=== PATIENT | female | born 1960 | race Caucasian/White ===

== ENCOUNTER 2016-10-05 11:53 | Emergency (ER) | payer OTHER ==
[2016-10-05] MEDS ORDERED: SODIUM CHLORIDE 0.9% 1,000 ML IV STA (12:20)
--- NOTE | 2016-10-05 12:31 | ED ---
Dizziness HPI - General Chief Complaint: Dizziness Stated Complaint: DIZZINESS Time Seen by Provider: 10/05/16 12:15 Source: patient, RN notes reviewed Mode of arrival: wheelchair Limitations: no limitations - History of Present Illness Initial Comments: Patient is a 56-year-old female presents to the emergency room for evaluation of dizziness. Patient states she has been dizzy for the past 2 weeks. Patient states she originally thought it was due to sinus congestion. Patient states been using nasal saline with no relief of symptoms. Patient states yesterday she was feeling extremely dizzy with a headache. Patient denies chest pain or shortness of breath. Patient states she thought she should be evaluated today. Patient also states that she just began lisinopril about 2 weeks ago, around the time and the dizziness began. Patient states she discontinue taking the lisinopril yesterday to see if that would help her symptoms. Patient states she feels slightly better today. Patient states she is having a slight headache. Patient states she feels like the room spinning around her. Patient states the dizziness comes in waves. Patient states she's nauseous when she feels dizzy. Patient states both of her ears feel blocked. Patient denies throat pain. Patient denies cough. Patient denies abdominal pain. Patient denies numbness or tingling in fingers and toes. Patient denies weakness. Patient denies fevers or chills. - Related Data Home Medications Medication Instructions Recorded Confirmed Lisinopril [Zestril] 5 mg PO DAILY 10/05/16 10/05/16 Previous Rx's Medication Instructions Recorded Amoxicillin/Potassium Clav 1 each PO Q12HR #20 tab 10/05/16 [Augmentin 875-125 Tablet] Meclizine [Antivert] 12.5 mg PO Q6H PRN #12 tablet 10/05/16 Allergies Allergy/AdvReac Type Severity Reaction Status Date / Time Sulfa (Sulfonamide Allergy Swelling Verified 10/05/16 12:11 Antibiotics) Review of Systems ROS Statement: Those systems with pertinent positive or pertinent negative responses have been documented in the HPI. ROS Other: All systems not noted in ROS Statement are negative. Past Medical History Past Medical History: Hypertension History of Any Multi-Drug Resistant Organisms: None Reported Past Surgical History: Section, Hysterectomy Past Psychological History: Anxiety, Panic Disorder Smoking Status: Current every day smoker Past Alcohol Use History: None Reported Past Drug Use History: None Reported General Exam - General Exam Comments Initial Comments: Laying in exam room, no acute distress. Limitations: no limitations General appearance: alert, in no apparent distress Head exam: Present: atraumatic, normocephalic, normal inspection Eye exam: Present: normal appearance, PERRL, EOMI Pupils: Present: normal accommodation ENT exam: Present: normal exam, mucous membranes moist, TM's normal bilaterally , normal external ear exam, other (Tenderness on palpating over frontal sinus and bilateral maxillary sinuses) Neck exam: Present: normal inspection, full ROM. Absent: tenderness, lymphadenopathy Respiratory exam: Present: normal lung sounds bilaterally. Absent: respiratory distress Cardiovascular Exam: Present: regular rate, normal rhythm, normal heart sounds Extremities exam: Present: normal inspection Back exam: Present: normal inspection Neurological exam: Present: alert, oriented X3, CN II-XII intact, normal gait Psychiatric exam: Present: normal affect, normal mood Skin exam: Present: warm, dry, intact, normal color. Absent: rash Course Vital Signs 10/05/16 10/05/16 10/05/16 11:53 13:11 14:00 Temperature 97.6 F Pulse Rate 76 60 Pulse Rate [ 68 Right Sitting] Pulse Rate [ 74 Right Standing] Pulse Rate [ 61 Right Supine] Respiratory 18 16 18 Rate Blood Pressure 160/72 112/67 Blood Pressure 133/74 [Right Arm Sitting] Blood Pressure 122/66 [Right Arm Standing] Blood Pressure 140/74 [Right Arm Supine] O2 Sat by Pulse 99 100 100 Oximetry 10/05/16 14:34 Temperature 97.7 F Pulse Rate 65 Pulse Rate [ Right Sitting] Pulse Rate [ Right Standing] Pulse Rate [ Right Supine] Respiratory 18 Rate Blood Pressure 120/68 Blood Pressure [Right Arm Sitting] Blood Pressure [Right Arm Standing] Blood Pressure [Right Arm Supine] O2 Sat by Pulse 100 Oximetry EKG Findings - EKG Comments: EKG Findings:: Normal sinus rhythm, ventricular rate 66 bpm, MD interval 114 ms , QRS duration 80 ms, QT/QTC 398/417 ms Medical Decision Making - Medical Decision Making Patient is a 56 year old female presents emergency room for evaluation of dizziness. Patient states she is feeling slightly better after Antivert and Zofran given. But, within normal limits. Cardiac enzymes within normal limits. EKG shows no concerning findings. Chest x-ray shows no concerning findings. Patient was offered head CT. Patient refused CT and states she thinks it's her sinuses and would like to be discharged home. Patient states she's having sinus pressure and pain. Will place patient on antibiotics to cover for sinusitis. Will also send patient home with Antivert as needed. Advised patient to follow up with her primary care provider on Friday or to return for worsening symptoms. Patient states understands everything that was discussed with her. Return parameters discussed. Case discussed with Dr. Davison. - Lab Data Result diagrams: 10/05/16 12:31 10/05/16 12:31 Lab Results 10/05/16 10/05/16 10/05/16 Range/Units 12:31 12:31 12:31 WBC 4.7 (3.8-10.6) k/uL RBC 3.85 (3.80-5.40) m/uL Hgb 13.4 (11.4-16.0) gm/dL Hct 37.9 (34.0-46.0) % MCV 98.5 (80.0-100.0) fL MCH 34.7 (25.0-35.0) pg MCHC 35.2 (31.0-37.0) g/dL RDW 12.1 (11.5-15.5) % Plt Count 177 (150-450) k/uL Neutrophils % 68 % Lymphocytes % 22 % Monocytes % 4 % Eosinophils % 3 % Basophils % 0 % Neutrophils # 3.2 (1.3-7.7) k/uL Lymphocytes # 1.0 (1.0-4.8) k/uL Monocytes # 0.2 (0-1.0) k/uL Eosinophils # 0.2 (0-0.7) k/uL Basophils # 0.0 (0-0.2) k/uL PT 10.5 (9.0-12.0) sec INR 1.0 (<1.1) Sodium 144 (137-145) mmol/L Potassium 4.6 (3.5-5.1) mmol/L Chloride 109 H (98-107) mmol/L Carbon Dioxide 28 (22-30) mmol/L Anion Gap 7 mmol/L BUN 10 (7-17) mg/dL Creatinine 0.76 (0.52-1.04) mg/dL Est GFR (MDRD) Af Amer >60 (>60 ml/min/1.73 sqM) Est GFR (MDRD) Non-Af >60 (>60 ml/min/1.73 sqM) Glucose 94 (74-99) mg/dL Calcium 9.3 (8.4-10.2) mg/dL Total Bilirubin 0.5 (0.2-1.3) mg/dL AST 14 (14-36) U/L ALT 21 (9-52) U/L Alkaline Phosphatase 73 (38-126) U/L Troponin I (0.000-0.034) ng/mL Total Protein 7.1 (6.3-8.2) g/dL Albumin 4.2 (3.5-5.0) g/dL Urine Color Urine Appearance (Clear) Urine pH (5.0-8.0) Ur Specific [place] (1.001-1.035) Urine Protein (Negative) Urine Glucose (UA) (Negative) Urine Ketones (Negative) Urine Blood (Negative) Urine Nitrite (Negative) Urine Bilirubin (Negative) Urine Urobilinogen (<2.0) mg/dL Ur Leukocyte Esterase (Negative) Urine Opiates Screen (NotDetected) Ur Oxycodone Screen (NotDetected) Urine Methadone Screen (NotDetected) Ur Propoxyphene Screen (NotDetected) Ur Barbiturates Screen (NotDetected) U Tricyclic Antidepress (NotDetected) Ur Phencyclidine Scrn (NotDetected) Ur Amphetamines Screen (NotDetected) U Methamphetamines Scrn (NotDetected) U Benzodiazepines Scrn (NotDetected) Urine Cocaine Screen (NotDetected) U Marijuana (THC) Screen (NotDetected) 10/05/16 10/05/16 Range/Units 12:31 12:55 WBC (3.8-10.6) k/uL RBC (3.80-5.40) m/uL Hgb (11.4-16.0) gm/dL Hct (34.0-46.0) % MCV (80.0-100.0) fL MCH (25.0-35.0) pg MCHC (31.0-37.0) g/dL RDW (11.5-15.5) % Plt Count (150-450) k/uL Neutrophils % % Lymphocytes % % Monocytes % % Eosinophils % % Basophils % % Neutrophils # (1.3-7.7) k/uL Lymphocytes # (1.0-4.8) k/uL Monocytes # (0-1.0) k/uL Eosinophils # (0-0.7) k/uL Basophils # (0-0.2) k/uL PT (9.0-12.0) sec INR (<1.1) Sodium (137-145) mmol/L Potassium (3.5-5.1) mmol/L Chloride (98-107) mmol/L Carbon Dioxide (22-30) mmol/L Anion Gap mmol/L BUN (7-17) mg/dL Creatinine (0.52-1.04) mg/dL Est GFR (MDRD) Af Amer (>60 ml/min/1.73 sqM) Est GFR (MDRD) Non-Af (>60 ml/min/1.73 sqM) Glucose (74-99) mg/dL Calcium (8.4-10.2) mg/dL Total Bilirubin (0.2-1.3) mg/dL AST (14-36) U/L ALT (9-52) U/L Alkaline Phosphatase (38-126) U/L Troponin I <0.012 (0.000-0.034) ng/mL Total Protein (6.3-8.2) g/dL Albumin (3.5-5.0) g/dL Urine Color Colorless Urine Appearance Clear (Clear) Urine pH 7.0 (5.0-8.0) Ur Specific [place] 1.002 (1.001-1.035) Urine Protein Negative (Negative) Urine Glucose (UA) Negative (Negative) Urine Ketones Negative (Negative) Urine Blood Negative (Negative) Urine Nitrite Negative (Negative) Urine Bilirubin Negative (Negative) Urine Urobilinogen <2.0 (<2.0) mg/dL Ur Leukocyte Esterase Negative (Negative) Urine Opiates Screen Not Detected (NotDetected) Ur Oxycodone Screen Not Detected (NotDetected) Urine Methadone Screen Not Detected (NotDetected) Ur Propoxyphene Screen Not Detected (NotDetected) Ur Barbiturates Screen Not Detected (NotDetected) U Tricyclic Antidepress Not Detected (NotDetected) Ur Phencyclidine Scrn Not Detected (NotDetected) Ur Amphetamines Screen Not Detected (NotDetected) U Methamphetamines Scrn Not Detected (NotDetected) U Benzodiazepines Scrn Not Detected (NotDetected) Urine Cocaine Screen Not Detected (NotDetected) U Marijuana (THC) Screen Not Detected (NotDetected) - Radiology Data Radiology results: report reviewed, image reviewed Disposition Clinical Impression: Dizziness, Sinusitis Disposition: HOME SELF-CARE Condition: Good Instructions: Dizziness (ED) Additional Instructions: Take Antivert as needed for dizziness. Take antibiotics as directed. Please follow up with primary care provider in 1-2 days or reevaluation. If any new symptom arises or symptoms worsen, return to ER as soon as possible. Prescriptions: Amoxicillin/Potassium Clav [Augmentin 875-125 Tablet] 1 each PO Q12HR #20 tab Meclizine [Antivert] 12.5 mg PO Q6H PRN #12 tablet PRN Reason: Vertigo Referrals: Christopher Brown DO [Primary Care Provider] - 1-2 days Time of Disposition: 14:24
[2016-10-05] MEDS ORDERED: ONDANSETRON 4 MG/2 ML VIAL IVP STA (12:43)
[2016-10-05] MEDS ORDERED: MECLIZINE 12.5 MG TAB PO STA (12:43)
[2016-10-05 12:50] LABS: Basophils % (A) 0 %; CH 34.7; CHCM 35.4; Eosinophils # (A) 0.2 k/uL (0-0.7); Eosinophils % (A) 3 %; HCT 37.9 % (34.0-46.0); HDW 2.53; HGB 13.4 gm/dL (11.4-16.0); Luc # (Auto) 0.09; Luc % (Auto) 2; Lymphocytes % (A) 22 %; MCH 34.7 pg (25.0-35.0); MCHC 35.2 g/dL (31.0-37.0); MCV 98.5 fL (80.0-100.0); Monocytes # (A) 0.2 k/uL (0-1.0); Monocytes % (A) 4 %; Neutrophils # (A) 3.2 k/uL (1.3-7.7); Neutrophils % (A) 68 %; RBC 3.85 m/uL (3.80-5.40); RDW 12.1 % (11.5-15.5); WBC 4.7 k/uL (3.8-10.6); WBC (Perox) 4.75
[2016-10-05 13:00] LABS: Prothrombin Time 10.5 sec (9.0-12.0)
[2016-10-05 13:06] LABS: ALT 21 U/L (9-52); AST 14 U/L (14-36); Alkaline Phosphatase 73 U/L (38-126); Anion Gap 7 mmol/L; Blood Urea Nitrogen 10 mg/dL (7-17); Calcium 9.3 mg/dL (8.4-10.2); Carbon Dioxide 28 mmol/L (22-30); Chloride 109 mmol/L (98-107); Glucose 94 mg/dL (74-99); Non-African American GFR(MDRD) >60 (>60 ml/min/1.73 sqM); Potassium 4.6 mmol/L (3.5-5.1); Sodium 144 mmol/L (137-145); Total Bilirubin 0.5 mg/dL (0.2-1.3); Total Protein 7.1 g/dL (6.3-8.2)
--- NOTE | 2016-10-05 13:36 | XR ---
EXAMINATION TYPE: XR chest 2V DATE OF EXAM: 10/05/2016 1:27 PM COMPARISON: NONE HISTORY: Dizziness and weakness. TECHNIQUE: Frontal and lateral views of the chest are obtained. FINDINGS: There is chronic parenchymal change without suspicious focal air space opacity, pleural ef fusion, or pneumothorax seen. The cardiac silhouette size is within normal limits. The osseous str uctures are intact. IMPRESSION: No acute cardiopulmonary process.
[2016-10-05 13:38] LABS: Appearance,Urine Clear (Clear); Bilirubin,Urine Negative (Negative); Glucose,Urine (UA) Negative (Negative); Ketones,Urine Negative (Negative); Leukocyte Esterase,Urine Negative (Negative); Nitrite,Urine Negative (Negative); Protein,Urine Negative (Negative); Specific Gravity,Urine 1.002 (1.001-1.035); UA Billing (MACRO vs. MICRO) CHEM; Urobilinogen,Urine <2.0 mg/dL (<2.0)
[2016-10-05 14:05] VITALS: RESP 18
[2016-10-05 14:37] VITALS: BP 120/68; PULSE 65; TEMP 97.7
== END 2016-10-05 14:37 | disposition home or self-care (01) ==
LOC: EC 11:53
DX: J32.9 Chronic sinusitis, unspecified (principal); R11.0 Nausea; I10 Essential (primary) hypertension; F17.200 Nicotine dependence, unspecified, uncomplicated; Z79.899 Other long term (current) drug therapy; Z88.2 Allergy status to sulfonamides
CPT/HCPCS: 36415; 93005; 80053; 84484; 85025; 85610; 81003; 80306; 71020; 99284; 96374; 96361; J2405

== ENCOUNTER → 2017-08-26 | Outpatient (CLI) | payer OTHER ==
[2017-08-26 15:07] LABS: Blood Urea Nitrogen 13 mg/dL (7-17)
== END | disposition home or self-care (01) ==
LOC: LABWHC1 14:30
PROVIDERS: ATTEND Psychiatry & Neurology Neurology
DX: R42 Dizziness and giddiness (principal)
CPT/HCPCS: 36415; 82565; 84520

== ENCOUNTER 2017-10-09 09:05 | Day surgery (SDC) | payer OTHER ==
[2017-10-09 09:32] VITALS: RESP 18; TEMP 98.3
[2017-10-09] MEDS ORDERED: LACTATED RINGERS 1,000 ML IV ONE (09:32)
[2017-10-09] MEDS ORDERED: LIDOCAINE 1% 20 ML VIAL (10MG/ML) FOR IV START INTRADERMA ONE (09:32)
--- NOTE | 2017-10-09 10:45 | P.PCN ---
Date of Procedure: 10/09/17 Anesthesia: local Surgeon: Shukri De Leon Description of Procedure: Preoperative diagnosis: Multiple sclerosis Post operative diagnoses: Multiple sclerosis Anesthesia local infiltration with lidocaine 1% 2 mL. Condition: stable Complication: none. Description of the procedure procedure risk and benefits discussed with the patient and family, consent signed. Patient was taken to the procedure area placed in seated position. Local infiltration of the skin and subcutaneous tissue with lidocaine 1%. A 22-gauge Quincke-type needle advanced slowly at L4 - 5 interlaminar space.CSF was collected. Opening pressure was 30 cm. Closing pressure was 14 cm. A total of 12 ML of clear cerebrospinal fluid collected in 4 different tubes 2-2-1/2 mL in each, then the needle removed and a Band-Aid applied and patient tolerated the procedure well without any complications. He will follow up with her neurologist per his plan of care.
[2017-10-09] MEDS ORDERED: IV FLUID CONTINUATION 1,000 ML IV ONE (10:51)
[2017-10-09 11:21] VITALS: BP 114/75; PULSE 62
[2017-10-09 11:46] LABS: Glucose,CSF 55 mg/dL (40-70); Total Protein,CSF 57 mg/dL (12-60)
[2017-10-09 12:56] LABS: Appearance,CSF Clear; CSF Tube Number 4; CSF Tube Volume 4.2; Nucleated Cells, CSF 0 u/L (0-5); Red Blood Cell,CSF 0 u/L (0-10)
[2017-10-09 17:03] LABS: Protein, Total 7.3 g/dL (6.2-8.2)
[2017-10-10 12:12] LABS: Albumin 4.54 g/dL (3.80-4.90); Gamma Globulin 0.95 g/dL (0.70-1.50)
[2017-10-10 14:15] LABS: IgG - CSF 3.1 mg/dL (0.0 - 3.4); IgG/Albumin Index (CSF) 0.52 (0.00 - 0.77)
== END 2017-10-09 11:55 | disposition home or self-care (01) ==
LOC: ORPAIN 09:05
PROVIDERS: ATTEND Pain Medicine Pain Medicine
DX: G35 Multiple sclerosis (principal); R42 Dizziness and giddiness; Z88.5 Allergy status to narcotic agent; Z88.2 Allergy status to sulfonamides
CPT/HCPCS: 84157; 82945; 82040; 82042; 82784; 83916; 89050; 82438; 84165; 62270; J2001; 86618

== ENCOUNTER → 2017-12-11 | Outpatient (CLI) | payer OTHER ==
--- NOTE | 2017-12-23 10:08 | ENG ---
ELECTRONYSTAGMOGRAM REPORT VNG REPORT VNG FINDINGS: Saccades shows intact peak velocities, accuracies and latencies. Tracking is intact without break-ups. Optokinetic nystagmus shows no significant asymmetry. Positional testing in 6 different positions with eyes open and with eyes closed shows no significant nystagmus. [place]-Hallpike maneuvers are negative. Caloric testing shows a bilateral caloric weakness. Another test such as the head thrust test or if available active and passive rotation testing is required to confirm presence of bilateral vestibular dysfunction. IMPRESSION: Bilateral caloric weakness is recorded and so no determination for unilateral caloric weakness could be determined. As noted above another test such as head thrust test or if available active and passive rotation testing is required to confirm presence of bilateral vestibular dysfunction. Otherwise, this is an unremarkable study. MMODL / IJN: [id number] /
== END | disposition home or self-care (01) ==
LOC: NEUROMAIN 06:54
PROVIDERS: ATTEND Otolaryngology
DX: R42 Dizziness and giddiness (principal)
CPT/HCPCS: 92537; 92540

== ENCOUNTER 2018-05-25 17:33 | Emergency (ER) | payer OTHER ==
[2018-05-25] MEDS ORDERED: DIAZEPAM 5 MG/ML 2 ML INJ IVP STA ×2 (18:23→20:55)
[2018-05-25] MEDS ORDERED: MECLIZINE 12.5 MG TAB PO STA (18:23)
[2018-05-25] MEDS ORDERED: SODIUM CHLORIDE 0.9% 1,000 ML IV STA (18:23)
--- NOTE | 2018-05-25 18:50 | ED ---
Dizziness HPI - General Chief Complaint: Dizziness Stated Complaint: DIZZY NAUSEA Time Seen by Provider: 05/25/18 18:09 Source: patient Mode of arrival: wheelchair Limitations: no limitations - History of Present Illness Initial Comments: 58-year-old male patient presented to the emergency department today for evaluation of dizziness. Patient states that she does have a history of vertigo. States that she's been feeling lightheaded for the last 5-6 days. Patient states that today the dizziness worsen significantly. Patient states that at rest or with movement the room is spinning. Patient states in the episodes, and she does feel like she has blurred vision. She did have some numbness and tingling to the left arm earlier today. Patient states the dizziness is the worst she has ever had. She denies any head injury. States she is having a mild right frontal headache. She has been nauseated and has been vomiting. She denies any weakness to extremities. States that she is having some pain to the right ear. States that she does have Valium at home but she hasn't taken for the last 4-5 days. She denies taking any meclizine. States she does follow with Dr. Lo outpatient for her vertigo. Patient denies any recent rash, fever, chills, shortness breath, chest pain, abdominal pain, diarrhea, constipation, back pain, hematuria, dysuria, urinary urgency, urinary frequency, or any other complaints. - Related Data Home Medications Medication Instructions Recorded Confirmed Acetaminophen [Tylenol] 500 mg PO Q8HR 05/25/18 05/25/18 Artificial Tears-Hypromellose 1 drop BOTH EYES DAILY 05/25/18 05/25/18 [Artificial Tear Drops] Diazepam [Valium] 2 mg PO DAILY 05/25/18 05/25/18 Previous Rx's Medication Instructions Recorded Amoxic-Pot Clav 875-125Mg 1 tab PO Q12HR #20 tablet 05/25/18 [Augmentin 875-125] Guaifenesin/Dextromethorphan 1 each PO BID #10 tab.er.12h 05/25/18 [Mucinex Dm ER 1,200-60 mg Tab] Ondansetron [Zofran ODT] 4 mg PO Q8HR PRN #10 tab 05/25/18 Allergies Allergy/AdvReac Type Severity Reaction Status Date / Time Sulfa (Sulfonamide Allergy Swelling Verified 05/25/18 19:05 Antibiotics) onion AdvReac Nausea & Verified 05/25/18 19:07 Vomiting & Diarrhea Review of Systems ROS Statement: Those systems with pertinent positive or pertinent negative responses have been documented in the HPI. ROS Other: All systems not noted in ROS Statement are negative. Past Medical History Past Medical History: Hypertension Additional Past Medical History / Comment(s): c/o dizziness, headaches," pressure in head" History of Any Multi-Drug Resistant Organisms: None Reported Past Surgical History: Section, Hysterectomy Past Anesthesia/Blood Transfusion Reactions: Motion Sickness, Postoperative Nausea & Vomiting (PONV) Past Psychological History: Anxiety, Panic Disorder Smoking Status: Current every day smoker - Past Family History Mother Family Medical History: No Reported History General Exam Limitations: no limitations General appearance: alert, in no apparent distress, other (This is a well- developed, well-nourished adult female patient in no acute distress. Vital signs upon presentation are temperature 98.4F, pulse 79, respirations 16, blood pressure 119/78, pulse ox 98% on room air.) Eye exam: Present: normal appearance, PERRL, EOMI. Absent: scleral icterus, conjunctival injection, nystagmus, periorbital swelling ENT exam: Present: normal exam, normal oropharynx, mucous membranes moist, TM's normal bilaterally Neck exam: Present: normal inspection. Absent: tenderness, meningismus, lymphadenopathy Respiratory exam: Present: normal lung sounds bilaterally. Absent: respiratory distress, wheezes, rales, rhonchi, stridor Cardiovascular Exam: Present: regular rate, normal rhythm, normal heart sounds. Absent: systolic murmur, diastolic murmur, rubs, gallop, clicks GI/Abdominal exam: Present: soft, normal bowel sounds. Absent: distended, tenderness, guarding, rebound, rigid Neurological exam: Present: alert, oriented X3, CN II-XII intact, other ( Strength in all 4 extremities is 5/5.) Psychiatric exam: Present: normal affect, normal mood Skin exam: Present: warm, dry, intact, normal color. Absent: rash Course Vital Signs 05/25/18 05/25/18 05/25/18 17:49 19:17 20:18 Temperature 98.4 F 98.1 F Pulse Rate 79 70 68 Respiratory 16 18 17 Rate Blood Pressure 119/78 131/80 147/75 O2 Sat by Pulse 98 95 100 Oximetry 05/25/18 21:22 Temperature Pulse Rate 66 Respiratory 18 Rate Blood Pressure 132/76 O2 Sat by Pulse 97 Oximetry EKG Findings - EKG Comments: EKG Findings:: EKG obtained at 1901 shows normal sinus rhythm with a ventricular rate of 69, FL interval 116, QRS duration 78, QT 390, QTC 417. No evidence of ST elevation or depression. Medical Decision Making - Medical Decision Making 58-year-old female patient presents to the emergency department today with chief complaint of dizziness. Patient does have past history significant for vertigo. Patient is reporting right ear pain and fullness. Labs reviewed and are unremarkable. EKG is normal sinus rhythm. CT of the brain was performed and did reveal evidence of left maxillary sinusitis. Patient is reporting nasal congestion and drainage. We will treat with Augmentin and Mucinex for this. She'll be given prescription for Zofran as well. She does have medication at home for dizziness. She is instructed to follow-up with ENT and her primary care physician for recheck as soon as possible. Return parameters discussed in detail. She verbalizes understanding and agrees with this plan. - Lab Data Result diagrams: 05/25/18 18:40 05/25/18 18:40 Lab Results 05/25/18 05/25/18 05/25/18 Range/Units 18:40 18:40 18:40 WBC 5.0 (3.8-10.6) k/uL RBC 4.14 (3.80-5.40) m/uL Hgb 13.7 (11.4-16.0) gm/dL Hct 40.3 (34.0-46.0) % MCV 97.5 (80.0-100.0) fL MCH 33.1 (25.0-35.0) pg MCHC 34.0 (31.0-37.0) g/dL RDW 11.9 (11.5-15.5) % Plt Count 211 (150-450) k/uL Neutrophils % 65 % Lymphocytes % 24 % Monocytes % 5 % Eosinophils % 5 % Basophils % 1 % Neutrophils # 3.2 (1.3-7.7) k/uL Lymphocytes # 1.2 (1.0-4.8) k/uL Monocytes # 0.3 (0-1.0) k/uL Eosinophils # 0.2 (0-0.7) k/uL Basophils # 0.0 (0-0.2) k/uL PT 9.8 (9.0-12.0) sec INR 0.9 (<1.2) APTT 24.1 (22.0-30.0) sec Sodium (137-145) mmol/L Potassium (3.5-5.1) mmol/L Chloride (98-107) mmol/L Carbon Dioxide (22-30) mmol/L Anion Gap mmol/L BUN (7-17) mg/dL Creatinine (0.52-1.04) mg/dL Est GFR (CKD-EPI)AfAm (>60 ml/min/1.73 sqM) Est GFR (CKD-EPI)NonAf (>60 ml/min/1.73 sqM) Glucose (74-99) mg/dL Calcium (8.4-10.2) mg/dL Total Bilirubin (0.2-1.3) mg/dL AST (14-36) U/L ALT (9-52) U/L Alkaline Phosphatase (38-126) U/L Troponin I <0.012 (0.000-0.034) ng/mL Total Protein (6.3-8.2) g/dL Albumin (3.5-5.0) g/dL Urine Color Urine Appearance (Clear) Urine pH (5.0-8.0) Ur Specific [place] (1.001-1.035) Urine Protein (Negative) Urine Glucose (UA) (Negative) Urine Ketones (Negative) Urine Blood (Negative) Urine Nitrite (Negative) Urine Bilirubin (Negative) Urine Urobilinogen (<2.0) mg/dL Ur Leukocyte Esterase (Negative) Urine RBC (0-5) /hpf Urine WBC (0-5) /hpf Ur Squamous Epith Cells (0-4) /hpf Urine Mucus (None) /hpf 05/25/18 05/25/18 Range/Units 18:40 20:09 WBC (3.8-10.6) k/uL RBC (3.80-5.40) m/uL Hgb (11.4-16.0) gm/dL Hct (34.0-46.0) % MCV (80.0-100.0) fL MCH (25.0-35.0) pg MCHC (31.0-37.0) g/dL RDW (11.5-15.5) % Plt Count (150-450) k/uL Neutrophils % % Lymphocytes % % Monocytes % % Eosinophils % % Basophils % % Neutrophils # (1.3-7.7) k/uL Lymphocytes # (1.0-4.8) k/uL Monocytes # (0-1.0) k/uL Eosinophils # (0-0.7) k/uL Basophils # (0-0.2) k/uL PT (9.0-12.0) sec INR (<1.2) APTT (22.0-30.0) sec Sodium 141 (137-145) mmol/L Potassium 4.3 (3.5-5.1) mmol/L Chloride 108 H (98-107) mmol/L Carbon Dioxide 27 (22-30) mmol/L Anion Gap 6 mmol/L BUN 15 (7-17) mg/dL Creatinine 0.83 (0.52-1.04) mg/dL Est GFR (CKD-EPI)AfAm >90 (>60 ml/min/1.73 sqM) Est GFR (CKD-EPI)NonAf 78 (>60 ml/min/1.73 sqM) Glucose 102 H (74-99) mg/dL Calcium 9.3 (8.4-10.2) mg/dL Total Bilirubin 0.2 (0.2-1.3) mg/dL AST 17 (14-36) U/L ALT 20 (9-52) U/L Alkaline Phosphatase 74 (38-126) U/L Troponin I (0.000-0.034) ng/mL Total Protein 7.5 (6.3-8.2) g/dL Albumin 4.4 (3.5-5.0) g/dL Urine Color Colorless Urine Appearance Clear (Clear) Urine pH 6.5 (5.0-8.0) Ur Specific [place] 1.003 (1.001-1.035) Urine Protein Negative (Negative) Urine Glucose (UA) Negative (Negative) Urine Ketones Negative (Negative) Urine Blood Negative (Negative) Urine Nitrite Negative (Negative) Urine Bilirubin Negative (Negative) Urine Urobilinogen <2.0 (<2.0) mg/dL Ur Leukocyte Esterase Moderate H (Negative) Urine RBC 1 (0-5) /hpf Urine WBC 21 H (0-5) /hpf Ur Squamous Epith Cells <1 (0-4) /hpf Urine Mucus Rare H (None) /hpf - Radiology Data Radiology results: report reviewed, image reviewed CT brain without contrast was obtained. Report was reviewed in its entirety. Impression by Dr. Wiley shows negative computed tomography scan of the brain. Minimal left maxillary sinusitis. Disposition Clinical Impression: Vertigo, Sinusitis Disposition: HOME SELF-CARE Condition: Good Instructions: Sinusitis (ED), Vertigo (ED) Additional Instructions: Take medications as directed. Follow-up through primary care physician and possibly your ears, nose, throat specialist for recheck as soon as possible. Return immediately for any new, worsening, or concerning symptoms. Prescriptions: Amoxic-Pot Clav 875-125Mg [Augmentin 875-125] 1 tab PO Q12HR #20 tablet Guaifenesin/Dextromethorphan [Mucinex Dm ER 1,200-60 mg Tab] 1 each PO BID #10 tab.er.12h Ondansetron [Zofran ODT] 4 mg PO Q8HR PRN #10 tab PRN Reason: Nausea Is patient prescribed a controlled substance at d/c from ED?: No Referrals: Christopher Brown DO [Primary Care Provider] - 1-2 days Time of Disposition: 20:57
[2018-05-25 19:00] LABS: Basophils % (A) 1 %; Eosinophils # (A) 0.2 k/uL (0-0.7); Eosinophils % (A) 5 %; HCT 40.3 % (34.0-46.0); HGB 13.7 gm/dL (11.4-16.0); Lymphocytes # (A) 1.2 k/uL (1.0-4.8); Lymphocytes % (A) 24 %; MCH 33.1 pg (25.0-35.0); MCV 97.5 fL (80.0-100.0); Mean Platelet Volume 6.8; Monocytes # (A) 0.3 k/uL (0-1.0); Monocytes % (A) 5 %; Neutrophils # (A) 3.2 k/uL (1.3-7.7); Neutrophils % (A) 65 %; Platelet Count 211 k/uL (150-450); RBC 4.14 m/uL (3.80-5.40); RDW 11.9 % (11.5-15.5)
[2018-05-25 19:08] LABS: ALT 20 U/L (9-52); AST 17 U/L (14-36); Albumin 4.4 g/dL (3.5-5.0); Alkaline Phosphatase 74 U/L (38-126); Anion Gap 6 mmol/L; Blood Urea Nitrogen 15 mg/dL (7-17); Calcium 9.3 mg/dL (8.4-10.2); Carbon Dioxide 27 mmol/L (22-30); Chloride 108 mmol/L (98-107); Glucose 102 mg/dL (74-99); INR 0.9 (<1.2); Partial Thromboplastin Time 24.1 sec (22.0-30.0); Potassium 4.3 mmol/L (3.5-5.1); Prothrombin Time 9.8 sec (9.0-12.0); Sodium 141 mmol/L (137-145); Total Bilirubin 0.2 mg/dL (0.2-1.3); Total Protein 7.5 g/dL (6.3-8.2)
[2018-05-25 19:18] VITALS: TEMP 98.1
--- NOTE | 2018-05-25 20:22 | CT ---
EXAMINATION TYPE: CT brain wo con DATE OF EXAM: 05/25/2018 COMPARISON: None HISTORY: Dizziness. CT DLP: 1154.4 mGycm Automated exposure control for dose reduction was used. FINDINGS: There is some mucosal thickening left maxillary sinus. Ventricles of normal size. There is no mass ef fect nor midline shift. There is no sign of intracranial hemorrhage. The calvarium is intact. There i s no evidence of cerebral edema. There is 2 mm left thalamic calcification. IMPRESSION: NEGATIVE CT SCAN OF THE BRAIN. MINIMAL LEFT MAXILLARY SINUSITIS.
[2018-05-25] MEDS ORDERED: AMOXIC-POT CLAV 875MG STARTER 2 EACH TABLET PO STA (20:55)
[2018-05-25] MEDS ORDERED: ONDANSETRON 4 MG/2 ML VIAL IVP STA (20:55)
[2018-05-25] MEDS ORDERED: guaiFENesin-DM 600/30MG 1 EACH TAB.ER.12H PO STA (20:58)
[2018-05-25 20:59] LABS: Appearance,Urine Clear (Clear); Bilirubin,Urine Negative (Negative); Blood,Urine Negative (Negative); Color,Urine Colorless; Glucose,Urine (UA) Negative (Negative); Ketones,Urine Negative (Negative); Leukocyte Esterase,Urine Moderate (Negative); Mucus,Urine Rare /hpf; Nitrite,Urine Negative (Negative); PH, Urine 6.5 (5.0-8.0); Protein,Urine Negative (Negative); RBC,Urine 1 /hpf (0-5); Specific Gravity,Urine 1.003 (1.001-1.035); Squamous Epithelial Cell,Urine <1 /hpf (0-4); Urobilinogen,Urine <2.0 mg/dL (<2.0); WBC,Urine 21 /hpf (0-5)
[2018-05-25 21:23] VITALS: BP 132/76; PULSE 66; RESP 18
== END 2018-05-25 21:28 | disposition home or self-care (01) ==
LOC: EC 17:33
DX: J32.0 Chronic maxillary sinusitis (principal); R42 Dizziness and giddiness; F41.0 Panic disorder [episodic paroxysmal anxiety]; F17.200 Nicotine dependence, unspecified, uncomplicated; Z79.899 Other long term (current) drug therapy; Z88.2 Allergy status to sulfonamides; Z91.018 Allergy to other foods
CPT/HCPCS: 36415; 93005; 80053; 84484; 85025; 85610; 85730; 81001; 70450; 99284; 96374; 96375; 96376; 96361 ×2; J3360; J2405

== ENCOUNTER → 2018-10-02 | Outpatient (CLI) | payer OTHER ==
[2018-10-02 10:59] LABS: Basophils % (A) 0 %; Eosinophils # (A) 0.2 k/uL (0-0.7); Eosinophils % (A) 4 %; HCT 38.8 % (34.0-46.0); HGB 13.1 gm/dL (11.4-16.0); Lymphocytes % (A) 18 %; MCH 33.9 pg (25.0-35.0); MCHC 33.7 g/dL (31.0-37.0); MCV 100.5 fL (80.0-100.0); Mean Platelet Volume 7.4; Monocytes # (A) 0.3 k/uL (0-1.0); Monocytes % (A) 5 %; Neutrophils % (A) 71 %; Platelet Count 189 k/uL (150-450); RBC 3.86 m/uL (3.80-5.40); RDW 12.3 % (11.5-15.5); WBC 5.6 k/uL (3.8-10.6)
[2018-10-02 17:49] LABS: Vitamin D 25 Hydroxy 17.9 ng/mL (30.0-100.0)
[2018-10-02 17:53] LABS: Cholesterol 267 mg/dL (0-200); Glucose 134 mg/dL (70-110); Potassium 4.4 mmol/L (3.5-5.5); Sodium 141 mmol/L (135-145); Uric Acid 4.1 mg/dL (2.9-7.7)
== END | disposition home or self-care (01) ==
LOC: LABWHC1 10:22
PROVIDERS: ATTEND Otolaryngology
DX: H90.3 Sensorineural hearing loss, bilateral (principal); H81.03 Meniere's disease, bilateral
CPT/HCPCS: 36415; 80061; 82306; 82565; 82607; 82947; 83721; 84132; 84207; 84295; 84520; 84550; 85025

== ENCOUNTER → 2019-04-14 | Outpatient (CLI) | payer OTHER ==
--- NOTE | 2019-04-14 15:35 | US ---
EXAMINATION TYPE: US pelvis complete transvag DATE OF EXAM: 04/14/2019 COMPARISON: NONE CLINICAL HISTORY: R10.02 pelvic pain. Hx UTI. Generalized pelvic pain x 1 month. Getter better per patient. Hx of hysterectomy, patient doesn't remember if she still has ovaries or not. TECHNIQUE: Transvaginal (TV) and Transabdominal (TA) . Transabdominal sonographic images of the pel vis were acquired. Transvaginal sonographic images were medically necessary to better assess the fol lowing anatomy: Ovaries Date of LMP: Hysterectomy EXAM MEASUREMENTS: Right Ovary: 1.6 x 1.0 x 1.0 cm 1. Uterus: Surgically absent 2. Endometrium: Surgically absent 3. Right Ovary: Possible right ovary visualized, appearing wnl 4. Left Ovary: Obscured by overlying bowel gas 5. Bilateral Adnexa: wnl 6. Posterior cul-de-sac: No free fluid IMPRESSION: Surgical absence of the uterus and obscuration of the left ovary. Possible atrophic right ovary measuring 1.6 cm however this is difficult to visualize due to adjacent bowel.
== END | disposition home or self-care (01) ==
LOC: RADUSWWP 14:47
PROVIDERS: ATTEND Obstetrics & Gynecology
DX: R10.2 Pelvic and perineal pain (principal); Z90.710 Acquired absence of both cervix and uterus
CPT/HCPCS: 76830; 76856

== ENCOUNTER → 2019-05-14 | Outpatient (CLI) | payer OTHER ==
--- NOTE | 2019-05-17 11:17 | MM ---
Reason for exam: screening (asymptomatic). Last mammogram was performed 5 years ago. History: Patient is postmenopausal. Family history of breast cancer in paternal aunt at age 40. Took estrogen for 3 years beginning at age 29. Took progesterone for 3 years beginning at age 29. Physical Findings: A clinical breast exam by your physician is recommended on an annual basis and results should be correlated with mammographic findings. MG Screening Mammo w CAD Bilateral CC and MLO view(s) were taken. XCCL view(s) were taken of the left breast. Prior study comparison: May 27, 2014, bilateral MG diagnostic mammo w CAD [facility]. The breast tissue is heterogeneously dense. This may lower the sensitivity of mammography. There is no discrete abnormality. No significant changes when compared with prior studies. ASSESSMENT: Negative, BI-RAD 1 RECOMMENDATION: Routine screening mammogram of both breasts in 1 year.
== END ==
LOC: RADMAMWWP 10:44
PROVIDERS: ATTEND Obstetrics & Gynecology
DX: Z12.31 Encounter for screening mammogram for malignant neoplasm of breast (principal)
CPT/HCPCS: 77067

== ENCOUNTER → 2020-08-01 | Outpatient (CLI) | payer OTHER ==
--- NOTE | 2020-08-02 10:34 | MM ---
Reason for exam: screening (asymptomatic). Last mammogram was performed 1 year and 3 months ago. History: Patient is postmenopausal. Family history of breast cancer in paternal aunt at age 40. Took hormonal contraceptives for 1 year 6 months. Took estrogen for 3 years beginning at age 29. Took progesterone for 3 years beginning at age 29. Physical Findings: A clinical breast exam by your physician is recommended on an annual basis and results should be correlated with mammographic findings. MG Screening Mammo w CAD Bilateral CC and MLO view(s) were taken. Prior study comparison: May 14, 2019, bilateral MG screening mammo w CAD. May 27, 2014, bilateral MG diagnostic mammo w CAD [facility]. The breast tissue is heterogeneously dense. This may lower the sensitivity of mammography. Finding: There is a 10 mm equal density (isodense) mass in the upper outer quadrant of the left breast. ASSESSMENT: Incomplete: need additional imaging evaluation, BI-RAD 0 RECOMMENDATION: Special view mammogram of the left breast. If lesion persists on supplemental views, image directed ultrasound is recommended. [facility] will attempt to contact patient to return for supplemental views and ultrasound if indicated.
== END | disposition home or self-care (01) ==
LOC: RADMAMWWP 07:37
PROVIDERS: ATTEND Obstetrics & Gynecology
DX: Z12.31 Encounter for screening mammogram for malignant neoplasm of breast (principal); Z80.3 Family history of malignant neoplasm of breast
CPT/HCPCS: 77067

== ENCOUNTER → 2020-08-03 | Outpatient (CLI) | payer OTHER ==
--- NOTE | 2020-08-03 10:52 | MM ---
Reason for exam: additional evaluation requested from abnormal screening. Last mammogram was performed less than 1 month ago. History: Patient is postmenopausal. Family history of breast cancer in paternal aunt at age 40. Took hormonal contraceptives for 1 year 6 months. Took estrogen for 3 years beginning at age 29. Took progesterone for 3 years beginning at age 29. Physical Findings: Nurse Summary: 1cm nodule in the left breast at 12 o'clock (nurse db). MG Work Up Mamm w CAD LT Spot compression CC, spot compression MLO, and ML view(s) were taken of the left breast. Prior study comparison: August 01, 2020, bilateral MG screening mammo w CAD. May 14, 2019, bilateral MG screening mammo w CAD. There is no discrete abnormality including area of concern. These results were verbally communicated with the patient and result sheet given to the patient on 08/03/20. ASSESSMENT: Incomplete: need additional imaging evaluation, BI-RAD 0 RECOMMENDATION: Ultrasound of the left breast.
--- NOTE | 2020-08-03 10:54 | USB ---
Reason for exam: additional evaluation requested from abnormal screening. History: Patient is postmenopausal. Family history of breast cancer in paternal aunt at age 40. Took hormonal contraceptives for 1 year 6 months. Took estrogen for 3 years beginning at age 29. Took progesterone for 3 years beginning at age 29. US Breast Workup Limited LT Left limited breast ultrasound including focal area of concern, retroareolar and axilla demonstrates no cystic or solid lesion seen. These results were verbally communicated with the patient and result sheet given to the patient on 08/03/20. ASSESSMENT: Negative, BI-RAD 1 RECOMMENDATION: Return to routine screening mammogram schedule for both breasts. Manage patient on a clinical basis.
== END | disposition home or self-care (01) ==
LOC: RADMAMWWP 08:48
PROVIDERS: ATTEND Obstetrics & Gynecology
DX: R92.8 Other abnormal and inconclusive findings on diagnostic imaging of breast (principal)
CPT/HCPCS: 77065

== ENCOUNTER → 2022-07-09 | Outpatient (CLI) | payer BC ==
--- NOTE | 2022-07-09 15:36 | US ---
EXAMINATION TYPE: US carotid duplex BILAT DATE OF EXAM: 07/09/2022 COMPARISON: NONE CLINICAL HISTORY: Z86.73 personal hx TIA. Hx TIA x 4 per patient. Current smoker, hypertension, hyper lipidemia. TECHNIQUE: Carotid duplex ultrasound examination. Indirect Doppler criteria was utilized. FINDINGS: EXAM MEASUREMENTS: RIGHT: Peak Systolic Velocity (PSV) cm/sec ----- Right CCA: 75.2 ----- Right ICA: 99.9 ----- Right ECA: 83.4 ICA/CCA ratio: 1.3 RIGHT: End Diastole cm/sec ----- Right CCA: 23.6 ----- Right ICA: 35.7 ----- Right ECA: 11.0 LEFT: Peak Systolic Velocity (PSV) cm/sec ----- Left CCA: 143 ----- Left ICA: 104 ----- Left ECA: 118 ICA/CCA ratio: 0.73 LEFT: End Diastole cm/sec ----- Left CCA: 35.3 ----- Left ICA: 35.4 ----- Left ECA: 11.8 VERTEBRALS (direction of flow): Right Vertebral: Antegrade Left Vertebral: Antegrade Rhythm: Normal ACCOUNTING SYSTEMS MANAGER NOTES: Plaque seen within bilateral CCA and bilateral bulbs. Greater amount of plaque see n within the left CCA. Elevated velocity within left distal CCA. IMPRESSION: Less than 50% stenosis of the bilateral carotid bifurcations. Criteria for Assigning % of Stenosis / Diameter reduction (Estimation based on the indirect measurements of the internal carotid artery velocities (ICA PSV). 1. Normal (no stenosis)=ICA PSV < 125 cm/s: ratio < 2.0: ICA EDV<40 cm/s. 2. Less than 50% stenosis=ICA PSV < 125 cm/s: ratio < 2.0: ICA EDV<40 cm/s. 3. 50 to 69% stenosis=ICA PSV of 125 to 230 cm/s: ration 2.0 ? 4.0: ICA EDV 40-100 cm/s. 4. Greater than 70% stenosis to near occlusion= ICA PSV > 230 cm/s: ratio > 4.0: ICA EDV > 100 cm/s. 5. Near occlusion= ICA PSV velocities may be low or undetectable: variable ratio and ICA EDV. 6. Total occlusion=unable to detect flow.
== END | disposition home or self-care (01) ==
LOC: RADUSWWP 14:16
PROVIDERS: ATTEND Family Medicine
DX: I65.23 Occlusion and stenosis of bilateral carotid arteries (principal); I10 Essential (primary) hypertension; F17.200 Nicotine dependence, unspecified, uncomplicated; E78.5 Hyperlipidemia, unspecified; Z86.73 Personal history of transient ischemic attack (TIA), and cerebral infarction without residual deficits
CPT/HCPCS: 93880

== ENCOUNTER 2022-12-01 10:09 | Emergency (ER) | payer BC ==
[2022-12-01] MEDS ORDERED: CYCLOBENZAPRINE 5 MG TAB PO STA ×2 (11:10→12:04)
--- NOTE | 2022-12-01 11:15 | ED ---
Back Pain HPI - General Chief Complaint: Back Pain/Injury Stated Complaint: Back injury Time Seen by Provider: 12/01/22 10:40 Source: patient, RN notes reviewed Mode of arrival: ambulatory Limitations: no limitations - History of Present Illness Initial Comments: Patient is a 62 year old female presenting to the ER with a chief complaint of back pain. Patient states she was bent over lift something yesterday and when standing up felt a spasm pain in her mid back. Patient reports pain since and has taken a Motrin with slight relief but states it made her stomach upset. Patient states she has been using ice packs and a heating pad. She has also tried icy hot. Patient states she had a similar incident about 2 weeks ago which was improving when this occurred. Denies saddle paresthesias, or radiating. Denies any bladder or bowel incontinence. Denies any fevers chills or night sweats. Patient does report increase in urinary frequency recently but denies dysuria. Patient is very hesitant on taking pain medication due to the side effects. No other complaints at this time. - Related Data Home Medications Medication Instructions Recorded Confirmed Acetaminophen [Tylenol] 500 mg PO Q8HR 05/25/18 05/25/18 Artificial Tears-Hypromellose 1 drop BOTH EYES DAILY 05/25/18 05/25/18 [Artificial Tear Drops] diazePAM [Valium] 2 mg PO DAILY 05/25/18 05/25/18 Previous Rx's Medication Instructions Recorded Amoxic-Pot Clav 875-125Mg 1 tab PO Q12HR #20 tablet 05/25/18 [Augmentin 875-125] Guaifenesin/Dextromethorphan 1 each PO BID #10 tab.er.12h 05/25/18 [Mucinex Dm ER 1,200-60 mg Tab] Ondansetron [Zofran ODT] 4 mg PO Q8HR PRN #10 tab 05/25/18 Cyclobenzaprine [Flexeril] 5 mg PO TID PRN #15 tablet 12/01/22 Allergies Allergy/AdvReac Type Severity Reaction Status Date / Time Sulfa (Sulfonamide Allergy Swelling Verified 08/03/20 09:33 Antibiotics) onion AdvReac Nausea & Verified 12/01/22 10:28 Vomiting & Diarrhea Review of Systems ROS Statement: Those systems with pertinent positive or pertinent negative responses have been documented in the HPI. ROS Other: All systems not noted in ROS Statement are negative. Past Medical History Past Medical History: Hypertension Additional Past Medical History / Comment(s): c/o dizziness, headaches," pressure in head" History of Any Multi-Drug Resistant Organisms: None Reported Past Surgical History: Section, Hysterectomy Past Anesthesia/Blood Transfusion Reactions: Motion Sickness, Postoperative Nausea & Vomiting (PONV) Past Psychological History: Anxiety, Panic Disorder Smoking Status: Current every day smoker Past Alcohol Use History: None Reported Past Drug Use History: None Reported - Past Family History Mother Family Medical History: No Reported History General Exam Limitations: no limitations General appearance: alert, in no apparent distress Eye exam: Present: normal appearance, PERRL, EOMI. Absent: scleral icterus, conjunctival injection, periorbital swelling ENT exam: Present: normal exam, mucous membranes moist Neck exam: Present: normal inspection, full ROM. Absent: tenderness, meningismus, lymphadenopathy Respiratory exam: Present: normal lung sounds bilaterally. Absent: respiratory distress, wheezes, rales, rhonchi, stridor Cardiovascular Exam: Present: regular rate, normal rhythm, normal heart sounds. Absent: systolic murmur, diastolic murmur, rubs, gallop, clicks GI/Abdominal exam: Present: soft, normal bowel sounds. Absent: distended, tenderness, guarding, rebound, rigid Extremities exam: Present: normal inspection, full ROM, normal capillary refill Back exam: Present: normal inspection, muscle spasm (Right mid back muscle spams noted. Negative bilateral straight leg test. Bilateral 2+ dorsalis pedis pulses. ), paraspinal tenderness Neurological exam: Present: alert, oriented X3 Skin exam: Present: warm, dry, intact, normal color Course Vital Signs 12/01/22 12/01/22 12/01/22 10:23 12:36 13:20 Temperature 97.8 F 98.1 F 98 F Pulse Rate 80 70 63 Respiratory 20 16 16 Rate Blood Pressure 121/79 116/70 109/67 O2 Sat by Pulse 99 98 98 Oximetry Medical Decision Making - Medical Decision Making Was pt. sent in by a medical professional or institution (, PA, IRRIGATION FLUME LAYER, urgent c are, hospital, or snf...) When possible be specific @ -No Did you speak to anyone other than the patient for history (EMS, parent, family, police, friend...)? What history was obtained from this source @ -No Did you review nursing and triage notes (agree or disagree)? Why? @ -I reviewed and agree with nursing and triage notes Were old charts reviewed (outside hosp., previous admission, EMS record, old EKG, old radiological studies, urgent care reports/EKG's, snf records)? Report findings @ -No old charts were reviewed Differential Diagnosis (chest pain, altered mental status, abdominal pain women, abdominal pain men, vaginal bleeding, weakness, fever, dyspnea, syncope, headache, dizziness, GI bleed, back pain, seizure, CVA, palpatations, mental health, musculoskeletal)? @ -Differential Back Pain: Strain, zoster, cauda equina syndrome, epidural abscess, vertebral osteomyelitis, discitis, fracture, subluxation, disc herniation, DJD, spinal stenosis, dissection, AAA, pancreatitis, peptic ulcer disease, pyelonephritis, kidney stone, this is not meant to be an all-inclusive list.ble EKG interpreted by me (3pts min.). @ -None X-rays interpreted by me (1pt min.). @ -X-ray lumbar spine shows no acute fracture, malalignment CT interpreted by me (1pt min.). @ -None done U/S interpreted by me (1pt. min.). @ -None done What testing was considered but not performed or refused? (CT, X-rays, U/S, labs)? Why? @ -None What meds were considered but not given or refused? Why? @ -None Did you discuss the management of the patient with other professionals (professionals i.e. , PA, IRRIGATION FLUME LAYER, lab, RT, psych nurse, social and human services assistant, college or university business manager, teacher, medical officer psychiatry, case loader operator)? Give summary @ -No Was smoking cessation discussed for >3mins.? @ -No Was critical care preformed (if so, how long)? @ -No Were there social determinants of health that impacted care today? How? (Homelessness, low income, unemployed, alcoholism, drug addiction, transportation, low edu. Level, literacy, decrease access to med. care, fdc, rehab)? @ -No Was there de-escalation of care discussed even if they declined (Discuss DNR or withdrawal of care, Hospice)? DNR status @ -No What co-morbidities impacted this encounter? (DM, HTN, Smoking, COPD, CAD, Cancer, CVA, ARF, Chemo, Hep., AIDS, mental health diagnosis, sleep apnea, morbid obesity)? @ -None Was patient admitted / discharged? Hospital course, mention meds given and route, prescriptions, significant lab abnormalities, going to OR and other pertinent info. @ -Discharge patient feels improved after Flexeril, Toradol. Patient has no red flag symptoms. Patient has lumbar strain return parameters were discussed. Undiagnosed new problem with uncertain prognosis? @ -No Drug Therapy requiring intensive monitoring for toxicity (Heparin, Nitro, Insulin, Cardizem)? @ -No Were any procedures done? @ -No Diagnosis/symptom? @ -Lumbar strain Acute, or Chronic, or Acute on Chronic? @ -Acute Uncomplicated (without systemic symptoms) or Complicated (systemic symptoms)? @ -Uncomplicated Side effects of treatment? @ -No Exacerbation, Progression, or Severe Exacerbation? @ -No Poses a threat to life or bodily function? How? (Chest pain, USA, SD, pneumonia, PE, COPD, DKA, ARF, appy, cholecystitis, CVA, Diverticulitis, Homicidal, Suicidal, threat to staff... and all critical care pts) @ -Nol - Lab Data Lab Results 12/01/22 Range/Units 12:45 Urine Color Colorless Urine Appearance Clear (Clear) Urine pH 7.0 (5.0-8.0) Ur Specific [place] 1.004 (1.001-1.035) Urine Protein Negative (Negative) Urine Glucose (UA) Negative (Negative) Urine Ketones Negative (Negative) Urine Blood Negative (Negative) Urine Nitrite Negative (Negative) Urine Bilirubin Negative (Negative) Urine Urobilinogen <2.0 (<2.0) mg/dL Ur Leukocyte Esterase Negative (Negative) Disposition Clinical Impression: Low back strain Disposition: HOME SELF-CARE Condition: Stable Instructions (If sedation given, give patient instructions): Acute Low Back Pain (ED) Additional Instructions: Please return to the Emergency Department if symptoms worsen or any other concerns. Prescriptions: Cyclobenzaprine [Flexeril] 5 mg PO TID PRN #15 tablet PRN Reason: Muscle Spasm Is patient prescribed a controlled substance at d/c from ED?: No Referrals: Christopher Brown DO [Primary Care Provider] - 1-2 days Time of Disposition: 13:20
--- NOTE | 2022-12-01 11:32 | XR ---
EXAMINATION TYPE: XR lumbar spine 2 or 3V DATE OF EXAM: 12/01/2022 CLINICAL HISTORY: pain TECHNIQUE: Three views of the lumbar spine are submitted. COMPARISON: None. FINDINGS: There are 5 lumbar type vertebral bodies identified. The lumbar spine shows satisfactory alignment w ithout evidence of acute fracture or dislocation. Vertebral body heights are within normal limits. Disc spaces are within normal limits. The overlying soft tissue appears unremarkable. IMPRESSION: No acute fracture or dislocation is seen in the lumbar spine. ICD 10 NO FRACTURE, INITIAL EVALUATION
[2022-12-01] MEDS ORDERED: KETOROLAC 15 MG/ML 1 ML VIAL IM STA (12:04)
[2022-12-01 12:37] VITALS: RESP 16
[2022-12-01 13:06] LABS: Appearance,Urine Clear (Clear); Bilirubin,Urine Negative (Negative); Blood,Urine Negative (Negative); Color,Urine Colorless; Glucose,Urine (UA) Negative (Negative); Ketones,Urine Negative (Negative); Leukocyte Esterase,Urine Negative (Negative); Nitrite,Urine Negative (Negative); Protein,Urine Negative (Negative); Specific Gravity,Urine 1.004 (1.001-1.035); Urobilinogen,Urine <2.0 mg/dL (<2.0)
[2022-12-01 13:22] VITALS: BP 109/67; PULSE 63; TEMP 98
== END 2022-12-01 13:33 | disposition home or self-care (01) ==
LOC: EC 10:09
DX: S39.012A Strain of muscle, fascia and tendon of lower back, initial encounter (principal); I10 Essential (primary) hypertension; F41.9 Anxiety disorder, unspecified; F17.200 Nicotine dependence, unspecified, uncomplicated; Z79.899 Other long term (current) drug therapy; Z88.2 Allergy status to sulfonamides; Z91.018 Allergy to other foods; X50.0XXA Overexertion from strenuous movement or load, initial encounter
CPT/HCPCS: 81003; 72100; 99284; 96372; J1885

== ENCOUNTER → 2022-12-26 | Outpatient (CLI) | payer BC ==
--- NOTE | 2022-12-26 10:51 | BD ---
EXAMINATION TYPE: Axial Bone Density DATE OF EXAM: 12/26/2022 CLINICAL HISTORY: 62 years old Female. ICD-10 CODE: Z13.820 screening for osteoporosis Height: 64" Weight: 157.2lbs FRAX RISK QUESTIONS: Alcohol (3 or more units per day): No Family History (Parent hip fracture): No Glucocorticoids (More than 3mos): No (Ex: prednisone, prednisolone, methylprednisolone, dexamethasone, and hydrocortisone). History of Fracture in Adulthood: Yes, ankle Secondary Osteoporosis: 1. Type 1 Diabetes: No 2. Hyperthyroidism: No 3. Menopause before 45: Yes, 29 4. Malnutrition: No 5. Chronic liver disease: No Rheumatoid Arthritis: No Current Tobacco Use: Yes RISK FACTORS HISTORY OF: Hip Fracture (Right/Left): No Spine Fracture: No History of Wrist Fracture: No Surgery to Spine/Hip(right/left)/Wrist (right/left): No Family History of Osteoporosis: Yes, maternal cousin Active: Yes Diet low in dairy products/other sources of calcium: No Postmenopausal woman: Yes Lost more than 2 inches in height since high school: No Frequent falls: No Poor Health: No Hyperparathyroidism: No Adrenal Insufficiency: No MEDICATIONS: Prednisone or other steroids: No Thyroid Medications: No Osteoporosis Medications: No Additional Medications: Flexaril as needed, calcium, losinapril, statin for cholesterol, allergy medi cation, vitamin d, aspirin Additional History: None EXAM MEASUREMENTS: Bone mineral densitometry was performed using the [employer] System. Bone mineral density as measured about the Lumbar spine is: ----- L1-L4(G/cm2): 0.944 T Score Values are as follows: ----- L1: -1.1 ----- L2: -2.2 ----- L3: -1.7 ----- L4: -2.8 ----- L1-L4: -2.0 Z Score Values are as follows: ----- L1: 0.1 ----- L2: -1.0 ----- L3: -0.5 ----- L4: -1.6 ----- L1-L4: -0.8 Baseline @[facility] Bone mineral density about the R hip (g/cm2): 0.913 Bone mineral density about the L hip (g/cm2): 0.833 T Score values are as follows: -----R Neck: -1.1 -----L Neck: -1.7 -----R Total: -0.8 -----L Total: -1.4 Z Score values are as follows: -----R Neck: 0.1 -----L Neck: -0.5 -----R Total: 0.2 -----L Total: -0.5 Baseline @[facility] FRAX%s: The graph provided illustrates a 9.3% chance for a major osteoporotic fx and a 1.7% chance fo r the hips probability for fx in 10 years time. IMPRESSION: Osteopenia (T Score between -2.5 and -1). There is slightly increased risk of fracture and the patient may be considered for treatment. Re-Screen 2-5 years. NOTE: T-SCORE=SD OF THE YOUNG ADULT MEAN.
== END | disposition home or self-care (01) ==
LOC: RADBDWWP 09:13
PROVIDERS: ATTEND Family Medicine
DX: Z13.820 Encounter for screening for osteoporosis (principal); M81.0 Age-related osteoporosis without current pathological fracture; M85.89 Other specified disorders of bone density and structure, multiple sites
CPT/HCPCS: 77080

== ENCOUNTER 2023-02-20 17:52 | Emergency (ER) | payer BC ==
[2023-02-20 18:14] VITALS: TEMP 98
[2023-02-20] MEDS ORDERED: DEXAMETHASONE SOD PHOSPHATE 10 MG/ML 1 ML VIAL IM STA (19:41)
[2023-02-20] MEDS ORDERED: ORPHENADRINE 30 MG/ML 2 ML VIAL IM STA (19:41)
[2023-02-20] MEDS ORDERED: KETOROLAC 15 MG/ML 1 ML VIAL IM STA (19:41)
[2023-02-20] MEDS ORDERED: LIDOCAINE 5% PATCH TOPICAL SCH (19:45)
--- NOTE | 2023-02-20 20:26 | XR ---
EXAMINATION TYPE: XR lumbar spine 2 or 3V DATE OF EXAM: 02/20/2023 8:22 PM CLINICAL INDICATION:Female, 62 years old with history of pain; COMPARISON: None TECHNIQUE: Frontal, lateral and coned in L5-S1 lateral views of the spine. FINDINGS: No evidence of any acute osseous pathology. No evidence of loss of vertebral body height i s seen. There is normal alignment of the lumbar vertebral bodies. No significant degeneration changes throughout the spine. Atherosclerosis of the arterial vasculature. IMPRESSION: 1. No acute fracture. 2. Mild multilevel disc degeneration.
--- NOTE | 2023-02-20 20:27 | XR ---
EXAMINATION TYPE: XR thoracic spine complete DATE OF EXAM: 02/20/2023 8:23 PM CLINICAL INDICATION:Female, 62 years old with history of pain; COMPARISON: None TECHNIQUE: 2 views of the thoracic spine in Frontal and lateral projections. FINDINGS: No evidence of acute fracture. There is scattered multilevel disk space narrowing without loss of ve rtebral body height. There is normal alignment of the thoracic vertebral bodies. Scattered osteophyte formation along the anterior and lateral aspects of the vertebral bodies. Neural foramen are patent given limitations of this exam. Spinal canal appears patent.Mild scoliosis changes. IMPRESSION: 1. No acute osseous pathology. 2. Mild degeneration changes throughout the spine. 3. Mild S-shaped scoliosis.
--- NOTE | 2023-02-20 20:32 | ED ---
Back Pain HPI - General Chief Complaint: Back Pain/Injury Stated Complaint: mid back right side of back pain Time Seen by Provider: 02/20/23 19:22 Source: patient, family Limitations: no limitations - History of Present Illness Initial Comments: 62-year-old female presenting with chief complaint of back pain. Patient has history of chronic lower back pain after an injury several months ago. 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 No loss of bowel or bladder control or saddle paresthesia. No dysuria or hematuria. She took ibuprofen at home which has been minimally helpful in alleviating her symptoms. No fevers or chills. No nausea or vomiting. Pain is worse with range of motion. - Related Data Home Medications Medication Instructions Recorded Confirmed Acetaminophen [Tylenol] 500 mg PO Q8HR 05/25/18 05/25/18 Artificial Tears-Hypromellose 1 drop BOTH EYES DAILY 05/25/18 05/25/18 [Artificial Tear Drops] diazePAM [Valium] 2 mg PO DAILY 05/25/18 05/25/18 Previous Rx's Medication Instructions Recorded Amoxic-Pot Clav 875-125Mg 1 tab PO Q12HR #20 tablet 05/25/18 [Augmentin 875-125] Guaifenesin/Dextromethorphan 1 each PO BID #10 tab.er.12h 05/25/18 [Mucinex Dm ER 1,200-60 mg Tab] Ondansetron [Zofran ODT] 4 mg PO Q8HR PRN #10 tab 05/25/18 Cyclobenzaprine [Flexeril] 5 mg PO TID PRN #15 tablet 12/01/22 Cyclobenzaprine [Flexeril] 10 mg PO TID PRN #15 tab 02/20/23 Allergies Allergy/AdvReac Type Severity Reaction Status Date / Time Sulfa (Sulfonamide Allergy Swelling Verified 02/20/23 18:13 Antibiotics) onion AdvReac Nausea & Verified 02/20/23 18:13 Vomiting & Diarrhea Review of Systems ROS Statement: Those systems with pertinent positive or pertinent negative responses have been documented in the HPI. ROS Other: All systems not noted in ROS Statement are negative. Past Medical History Past Medical History: Hyperlipidemia, Hypertension Additional Past Medical History / Comment(s): c/o dizziness, headaches," pressure in head", nerve damage r ear History of Any Multi-Drug Resistant Organisms: None Reported Past Surgical History: Section, Hysterectomy Past Anesthesia/Blood Transfusion Reactions: Motion Sickness, Postoperative Nausea & Vomiting (PONV) Past Psychological History: Anxiety, Panic Disorder Smoking Status: Current every day smoker Past Alcohol Use History: None Reported Past Drug Use History: None Reported - Past Family History Mother Family Medical History: No Reported History General Exam Limitations: no limitations General appearance: alert, in no apparent distress Head exam: Present: atraumatic, normocephalic, normal inspection Eye exam: Present: normal appearance, EOMI Neck exam: Present: normal inspection, full ROM Respiratory exam: Present: normal lung sounds bilaterally. Absent: respiratory distress, wheezes, rales, rhonchi, stridor Cardiovascular Exam: Present: regular rate, normal rhythm, normal heart sounds. Absent: systolic murmur, diastolic murmur, rubs, gallop, clicks Back exam: Present: normal inspection, tenderness Neurological exam: Present: alert, oriented X3, CN II-XII intact Psychiatric exam: Present: normal affect, normal mood Skin exam: Present: warm, dry, intact, normal color. Absent: rash Course Vital Signs 02/20/23 02/20/23 18:08 21:38 Temperature 98.0 F 98.0 F Pulse Rate 83 80 Respiratory 12 16 Rate Blood Pressure 140/79 132/71 O2 Sat by Pulse 97 98 Oximetry Medical Decision Making - Medical Decision Making Was pt. sent in by a medical professional or institution (, PA, MORTGAGE LOAN PROCESSING CLERK, urgent care, hospital, or residential...) When possible be specific @ -No Did you speak to anyone other than the patient for history (EMS, parent, family, police, friend...)? What history was obtained from this source @ -No Did you review nursing and triage notes (agree or disagree)? Why? @ -I reviewed and agree with nursing and triage notes Were old charts reviewed (outside hosp., previous admission, EMS record, old EKG, old radiological studies, urgent care reports/EKG's, residential records)? Report findings @ -No old charts were reviewed Differential Diagnosis (chest pain, altered mental status, abdominal pain women, abdominal pain men, vaginal bleeding, weakness, fever, dyspnea, syncope, headache, dizziness, GI bleed, back pain, seizure, CVA, palpatations, mental health, musculoskeletal)? @ - MDM Differential Back Pain: Strain, zoster, cauda equina syndrome, epidural abscess, vertebral osteomyelitis, discitis, fracture, subluxation, disc herniation, DJD, spinal stenosis, dissection, AAA, pancreatitis, peptic ulcer disease, pyelonephritis, kidney stone this is not meant to be an all-inclusive list. EKG interpreted by me (3pts min.). @ -As above X-rays interpreted by me (1pt min.). @ -X-rays of the thoracic and lumbar spine show no acute osseous abnormality CT interpreted by me (1pt min.). @ -None done U/S interpreted by me (1pt. min.). @ -None done What testing was considered but not performed or refused? (CT, X-rays, U/S, labs)? Why? @ -None What meds were considered but not given or refused? Why? @ -None Did you discuss the management of the patient with other professionals (professionals i.e. , PA, MORTGAGE LOAN PROCESSING CLERK, lab, RT, psych nurse, drug abuse social worker, tassel maker, teacher, security public safety officer, piano case and bench assembler)? Give summary @ -No Was smoking cessation discussed for >3mins.? @ -No Was critical care preformed (if so, how long)? @ -No Were there social determinants of health that impacted care today? How? (Homelessness, low income, unemployed, alcoholism, drug addiction, transportation, low edu. Level, literacy, decrease access to med. care, long term, rehab)? @ -No Was there de-escalation of care discussed even if they declined (Discuss DNR or withdrawal of care, Hospice)? DNR status @ -No What co-morbidities impacted this encounter? (DM, HTN, Smoking, COPD, CAD, Cancer, CVA, ARF, Chemo, Hep., AIDS, mental health diagnosis, sleep apnea, morbid obesity)? @ -None Was patient admitted / discharged? Hospital course, mention meds given and route, prescriptions, significant lab abnormalities, going to OR and other pertinent info. @ -62-year-old female with history of chronic back pain presenting with chief complaint of back pain. States that she was bending down to pick something up today and felt a pop in her back. No loss of bowel or bladder control or saddle paresthesia. No other red flag symptoms. Physical examination is conducted. X-rays are negative for fracture. Patient is given pain medication on reassessment reports improvement in her symptoms. She is discharged with prescription for cyclobenzaprine and educated on supportive management at home. Follow-up with PCP. Report back to ER with any new or worsening symptoms. Discussed return parameters and answered all questions. Patient conveyed verbal understanding and agreed to the plan. I discussed this case in detail with my attending Dr. Cerna Undiagnosed new problem with uncertain prognosis? @ -No Drug Therapy requiring intensive monitoring for toxicity (Heparin, Nitro, Insulin, Cardizem)? @ -No Were any procedures done? @ -No Diagnosis/symptom? @ Mechanical back pain Acute, or Chronic, or Acute on Chronic? @ -Acute on chronic Uncomplicated (without systemic symptoms) or Complicated (systemic symptoms)? @ -Uncomplicated Side effects of treatment? @ -No Exacerbation, Progression, or Severe Exacerbation? @ -No Poses a threat to life or bodily function? How? (Chest pain, [place], [place], pneumonia, PE, COPD, DKA, ARF, appy, cholecystitis, CVA, Diverticulitis, Homicidal, Suicidal, threat to staff... and all critical care pts) @ -No Disposition Clinical Impression: Mechanical back pain Disposition: HOME SELF-CARE Condition: Good Instructions (If sedation given, give patient instructions): Acute Low Back Pain (ED) Additional Instructions: Follow-up with PCP. Report back to ER with any new or worsening symptoms. Take medication as prescribed. Do not take cyclobenzaprine before driving or operating any machinery as it may cause drowsiness Prescriptions: Cyclobenzaprine [Flexeril] 10 mg PO TID PRN #15 tab PRN Reason: Spasms Is patient prescribed a controlled substance at d/c from ED?: No Referrals: Christopher Brown DO [Primary Care Provider] - 1-2 days Jairo Ware DO [Doctor of Osteopathic Medicine] - 1-2 days Time of Disposition: 21:20
[2023-02-20 21:42] VITALS: BP 132/71; PULSE 80; RESP 16
== END 2023-02-20 21:42 | disposition home or self-care (01) ==
LOC: EC 17:52
DX: M51.36 Other intervertebral disc degeneration, lumbar region (principal); I10 Essential (primary) hypertension; F41.9 Anxiety disorder, unspecified; F17.200 Nicotine dependence, unspecified, uncomplicated; Z79.899 Other long term (current) drug therapy; Z88.2 Allergy status to sulfonamides; Z91.018 Allergy to other foods
CPT/HCPCS: 72072; 72100; 99283; 96372 ×3; J1100; J2360; J1885